=== PATIENT | female | born 1940 | race Caucasian/White ===

== ENCOUNTER 2017-03-23 17:33 | Emergency (ER) | payer MEDICARE, OTHER ==
[~2017-03-23 17:33] MED LIST: ALPHA; CALCIUM WITH VI1 TAB PO; CIPRO500 M2 PO; NITROFURANTOIN100 M1 PO; PREMARIN; PREMARIN0.3 MG PO; SINGULAIR10 M1 PO; TYLENOL EXTRA500 MG PO; VITAMIN D; VITAMIN D1000 UNIT PO; [UNRECOGNIZED DRUG - OTHER]; [UNRECOGNIZED DRUG - OTHER] PO; [UNRECOGNIZED DRUG - OTHER] PO
[2017-03-23] MEDS ORDERED: BACTRIM DS TAB1 EAC2 PO (17:54)
[2017-03-23] MEDS ORDERED: PREMARIN1.25 M1 PO (17:55)
[2017-03-23] MEDS ORDERED: ALOE VERA25 M1 PO (17:56)
[2017-03-23] MEDS ORDERED: LASIX20 M1 PO (17:57)
== END 2017-03-23 19:36 ==
LOC: EDMED 17:33
PROC: 0HQ0XZZ Repair Scalp Skin, External Approach (ICD-10-PCS; principal; 2017-03-23)
DX: S01.01XA Laceration without foreign body of scalp, initial encounter (principal); Z90.49 Acquired absence of other specified parts of digestive tract; W22.8XXA Striking against or struck by other objects, initial encounter; Y92.009 Unspecified place in unspecified non-institutional (private) residence as the place of occurrence of the external cause